=== PATIENT | male | born 1975 | race Caucasian/White ===

== ENCOUNTER 2020-11-11 14:44 | Emergency (ER) | payer OTHER ==
[~2020-11-11] VITALS: Ht 170.2 cm; Wt 109.0 kg
[~2020-11-11 14:44] MED LIST: CHOL400T32 PO; MELO-102 PO; OMEP20TA5 PO; PER10325T PO; TOPI50TA24 PO
[2020-11-11] MEDS ORDERED: dexamethasone sod phosphate 10mg/ml inj IV STA (15:20)
[2020-11-11] MEDS ORDERED: famotidine/PF 10 mg/ml inj IV ONE (15:20)
[2020-11-11 15:22] VITALS: BP 120/74
[2020-11-11] MEDS ORDERED: PRED20TA PO (15:25)
== END 2020-11-11 15:59 | disposition home or self-care (01) ==
LOC: ER 14:44
DX: R20.8 Other disturbances of skin sensation (principal); T49.0X5A Adverse effect of local antifungal, anti-infective and anti-inflammatory drugs, initial encounter; E78.00 Pure hypercholesterolemia, unspecified; I10 Essential (primary) hypertension; Z98.890 Other specified postprocedural states; Z79.899 Other long term (current) drug therapy; Y92.89 Other specified places as the place of occurrence of the external cause
CPT/HCPCS: 96374; 96375; 99284; J1100; J3490

== ENCOUNTER 2022-09-22 17:39 | Emergency (ER) | payer OTHER ==
[~2022-09-22] VITALS: Ht 170.2 cm; Wt 111.4 kg
[~2022-09-22 17:39] MED LIST changes: +OMEP20TA43 PO; -OMEP20TA5 PO; +TOPI-253 PO; -TOPI50TA24 PO
[2022-09-22 17:43] VITALS: BP 159/86
[2022-09-22] MEDS ORDERED: HYDROcodone/acetaminophen 10/325mg tab PO ONE (18:10)
[2022-09-22] MEDS ORDERED: IBUP-1986 PO (18:22)
[2022-09-22] MEDS ORDERED: HYDR-3965 PO (18:22)
== END 2022-09-22 18:30 | disposition home or self-care (01) ==
LOC: ER 17:40
DX: S93.402A Sprain of unspecified ligament of left ankle, initial encounter (principal); I10 Essential (primary) hypertension; E78.00 Pure hypercholesterolemia, unspecified; Z79.899 Other long term (current) drug therapy; X58.XXXA Exposure to other specified factors, initial encounter; Y93.89 Activity, other specified; Y92.89 Other specified places as the place of occurrence of the external cause; Y99.8 Other external cause status
CPT/HCPCS: 73610; 99283

== ENCOUNTER 2022-11-27 15:43 | Emergency (ER) | payer OTHER ==
[~2022-11-27] VITALS: Ht 170.2 cm; Wt 115.0 kg
[~2022-11-27 15:43] MED LIST changes: +IBUP-1986 PO
[2022-11-27 15:59] VITALS: TEMP 97.3
[2022-11-27 16:27] LABS: MEAN PLATELET VOLUME 6.7 FL (7.4-10.4)
[2022-11-27 16:28] LABS: BASOPHILS % (AUTO) 0.4 % (0-1); EOSINOPHILS # (AUTO) 0.1 X10'3 (0-0.9); EOSINOPHILS % (AUTO) 0.9 % (0-6); HEMATOCRIT 45.7 % (42.0-52.0); HEMOGLOBIN 15.7 g/dl (14.0-17.9); LYMPHOCYTES # (AUTO) 3.2 X10'3 (1.1-4.8); LYMPHOCYTES % (AUTO) 28.3 % (21-51); MEAN CORPUSCULAR HEMOGLOBIN 31.9 PG (27.0-31.0); MEAN CORPUSCULAR HGB CONC 34.3 g/dL (33.0-36.5); MEAN CORPUSCULAR VOLUME 93.1 FL (78-98); MONOCYTES # (AUTO) 0.7 X10'3 (0-0.9); MONOCYTES % (AUTO) 6.1 % (2-12); NEUTROPHILS # (AUTO) 7.3 X10'3 (1.8-7.7); NEUTROPHILS % (AUTO) 64.3 % (42-75); PLATELET COUNT 255 X10'3 (140-440); RED BLOOD COUNT 4.91 X10'6 (4.70-6.10); RED CELL DISTRIBUTION WIDTH 13.2 % (11.5-14.5); WHITE BLOOD COUNT 11.4 X10'3 (4.5-11.0)
[2022-11-27 16:39] LABS: ALANINE AMINOTRANSFERASE 64 U/L (12-78); ALBUMIN 4.1 G/DL (3.4-5.0); ALBUMIN/GLOBULIN RATIO 1.3 (1.1-1.5); ALKALINE PHOSPHATASE 70 IU/L (46-116); ANION GAP 6 (8-16); ASPARTATE AMINO TRANSFERASE 35 U/L (10-37); BILIRUBIN,TOTAL 0.6 MG/DL (0.1-1.0); BLOOD UREA NITROGEN 20 MG/DL (7-18); BUN/CREATININE RATIO 13.2 (10.0-20.0); CALCIUM 9.4 MG/DL (8.5-10.1); CHLORIDE 106 MMOL/L (99-107); CREATININE 1.51 MG/DL (0.60-1.10); GLUCOSE 139 MG/DL (70-104); LIPASE 125 U/L (73-393); POTASSIUM 4.1 MMOL/L (3.5-5.1); SODIUM 139 MMOL/L (135-145); TOTAL CARBON DIOXIDE 26.8 MMOL/L (24-32); TOTAL PROTEIN 7.2 G/DL (6.4-8.2); eCRCL 58 ML/MIN; eGFR 50 ML/MIN
[2022-11-27 17:36] LABS: BILIRUBIN,URINE NEGATIVE (Neg); CLARITY,URINE CLOUDY (Clear); COLOR,URINE YELLOW (Yellow); GLUCOSE, URINE NEGATIVE (Neg); KETONES,URINE NEGATIVE (Neg); LEUKOCYTE ESTERASE ,URINE NEGATIVE (Neg); NITRITES, URINE NEGATIVE (Neg); OCCULT BLOOD,URINE LARGE (Neg); PROTEIN,URINE NEGATIVE (Neg); UROBILINOGEN,URINE 0.2 E.U/dL (0.2-1.0)
[2022-11-27] MEDS ORDERED: morphine 4 MG/ML inj SYRINge IV ONE (17:40)
[2022-11-27] MEDS ORDERED: ondansetron/PF 4mg/2ml inj IV ONE (17:40)
[2022-11-27 17:43] LABS: UA COLLECTION TYPE CLN CATCH MIDSTREAM
[2022-11-27 17:45] LABS: BACTERIA,URINE FEW /HPF (Neg); MUCUS STRANDS FEW /LPF (Neg); RBC,URINE TNTC /HPF (0-2); SQUAMOUS EPITHELIAL CELL,UR FEW /LPF (FEW); WBC,URINE 0-4 /HPF (0-4)
[2022-11-27] MEDS ORDERED: iohexol 300mg/ml 100ml inj. ONE (18:03)
[2022-11-27 18:54] VITALS: BP 125/74; PULSE 74; RESP 16; O2SAT 92
[2022-11-27] MEDS ORDERED: ketorolac trometh. 30mg/ml inj. IV ONE (19:00)
[2022-11-27] MEDS ORDERED: FLO0.4C PO ×3 (19:28→20:00)
[2022-11-27] MEDS ORDERED: NAPR-56 PO ×3 (19:28→20:00)
== END 2022-11-27 20:17 | disposition home or self-care (01) ==
LOC: ER 15:44
DX: N20.1 Calculus of ureter (principal); E78.00 Pure hypercholesterolemia, unspecified; I10 Essential (primary) hypertension; Z79.899 Other long term (current) drug therapy
CPT/HCPCS: 36415; 74176; 80053; 81001; 83690; 85025; 96374; 96375; 99285; J1885; J2270; J2405; J3490; J7030; Q9967

== ENCOUNTER 2024-07-07 07:39 | Emergency (ER) | payer OTHER ==
[~2024-07-07] VITALS: Ht 170.2 cm; Wt 115.8 kg
[~2024-07-07 07:39] MED LIST changes: +NAPR-56 PO; +TAMS-55 PO; -TOPI-253 PO; +TOPI-95 PO
[2024-07-07 08:42] LABS: BILIRUBIN,URINE NEGATIVE (Neg); CLARITY,URINE CLEAR (Clear); COLOR,URINE YELLOW (Yellow); GLUCOSE, URINE NEGATIVE (Neg); KETONES,URINE NEGATIVE (Neg); LEUKOCYTE ESTERASE ,URINE NEGATIVE (Neg); NITRITES, URINE NEGATIVE (Neg); OCCULT BLOOD,URINE MODERATE (Neg); PH,URINE 6.5 (4.8-8.0); PROTEIN,URINE NEGATIVE (Neg); UROBILINOGEN,URINE 0.2 E.U/dL (0.2-1.0)
[2024-07-07 08:51] LABS: UA COLLECTION TYPE URINAL
[2024-07-07 08:53] LABS: RBC,URINE TNTC /HPF (0-2); WBC,URINE 0-4 /HPF (0-4)
[2024-07-07 08:55] LABS: AMORPHOUS PHOSPHATES 2+; BACTERIA,URINE FEW /HPF (Neg); MUCUS STRANDS FEW /LPF (Neg); SQUAMOUS EPITHELIAL CELL,UR NONE SEEN /LPF (FEW)
[2024-07-07] MEDS: normal saline 1000ml 1,000 ML IV STA ×2 (09:53→09:54)
[2024-07-07] MEDS: morphine 4 MG/ML inj SYRINge IV STA (09:55)
[2024-07-07] MEDS: ondansetron/PF 4mg/2ml inj IV STA (09:55)
[2024-07-07] MEDS: tamsulosin 0.4mg capsule PO STA (09:55)
[2024-07-07 10:57] LABS: BASOPHILS % (AUTO) 0.3 % (0-1); EOSINOPHILS # (AUTO) 0.1 X10'3 (0-0.9); EOSINOPHILS % (AUTO) 1.1 % (0-6); HEMATOCRIT 44.8 % (42.0-52.0); HEMOGLOBIN 15.6 g/dl (14.0-17.9); LYMPHOCYTES # (AUTO) 2.3 X10'3 (1.1-4.8); LYMPHOCYTES % (AUTO) 21.8 % (21-51); MEAN CORPUSCULAR HEMOGLOBIN 31.5 PG (27.0-31.0); MEAN CORPUSCULAR HGB CONC 34.7 g/dL (33.0-36.5); MEAN CORPUSCULAR VOLUME 90.9 FL (78-98); MEAN PLATELET VOLUME 6.4 FL (7.4-10.4); MONOCYTES # (AUTO) 0.8 X10'3 (0-0.9); MONOCYTES % (AUTO) 7.4 % (2-12); NEUTROPHILS # (AUTO) 7.4 X10'3 (1.8-7.7); NEUTROPHILS % (AUTO) 69.4 % (42-75); PLATELET COUNT 214 X10'3 (140-440); RED BLOOD COUNT 4.94 X10'6 (4.70-6.10); WHITE BLOOD COUNT 10.7 X10'3 (4.5-11.0)
[2024-07-07 11:13] LABS: ALANINE AMINOTRANSFERASE 39 U/L (12-78); ALBUMIN 3.5 G/DL (3.4-5.0); ALBUMIN/GLOBULIN RATIO 1.1 (1.1-1.5); ALKALINE PHOSPHATASE 70 IU/L (46-116); ANION GAP 7 (8-16); ASPARTATE AMINO TRANSFERASE 26 U/L (10-37); BILIRUBIN,TOTAL 0.8 MG/DL (0.1-1.0); BLOOD UREA NITROGEN 17 MG/DL (7-18); BUN/CREATININE RATIO 10.2 (10.0-20.0); CALCIUM 7.9 MG/DL (8.5-10.1); CHLORIDE 103 MMOL/L (99-107); CREATININE 1.67 MG/DL (0.60-1.10); GLUCOSE 108 MG/DL (70-104); POTASSIUM 3.8 MMOL/L (3.5-5.1); SODIUM 135 MMOL/L (135-145); TOTAL PROTEIN 6.7 G/DL (6.4-8.2); eCRCL 51 ML/MIN; eGFR 44 ML/MIN
[2024-07-07] MEDS ORDERED: HYDR-3973 PO (12:30)
[2024-07-07] MEDS ORDERED: TAMS-55 PO (12:30)
[2024-07-07] MEDS: HYDROmorphone 1 mg/ml syringe IV STA (12:45)
[2024-07-07 13:27] VITALS: BP 134/88; PULSE 85; RESP 16; TEMP 97.8; O2SAT 96
== END 2024-07-07 13:29 | disposition home or self-care (01) ==
LOC: ER 07:39
DX: N13.2 Hydronephrosis with renal and ureteral calculous obstruction (principal); E78.00 Pure hypercholesterolemia, unspecified; I10 Essential (primary) hypertension; Z87.442 Personal history of urinary calculi
CPT/HCPCS: 36415; 74176; 80053; 81001; 85025; 96361; 96374; 96375; 99285; J1171; J2270; J2405; J7030